=== PATIENT | female | born 1940 | race Caucasian/White ===

== ENCOUNTER 2016-09-06 10:53 | Emergency (ER) | payer OTHER ==
[~2016-09-06] VITALS: Ht 152.4 cm; Wt 60.1 kg
[~2016-09-06 10:53] MED LIST: ASPI-621 PO; BENA20TA61 PO; CLOP75TA22 PO; DIAZ2TAB3 PO; HYDR25TA6 PO; PANT40TA3 PO; PARO20TA55 PO; PRAV20TA2 PO; TRAZ50TA18 PO
[2016-09-06] MEDS ORDERED: AMPICILLIN/SULBACTAM 3 GM in SODIUM CHLORIDE 0.9% 100 ML IVPB ONE (11:30)
[2016-09-06] MEDS ORDERED: SODIUM CHLORIDE 0.9% 1,000ML IVBOLUS ONE (11:30)
[2016-09-06] MEDS ORDERED: SODIUM CHLORIDE FLUSH 10ML SYR IVF ONE (11:30)
[2016-09-06 11:57] VITALS: BP 122/71
[2016-09-06 12:18] LABS: BLOOD UREA NITROGEN 11 mg/dL (7-18)
== END 2016-09-06 13:03 | disposition home or self-care (01) ==
LOC: ED 12:07
DX: L03.114 Cellulitis of left upper limb (principal); E11.9 Type 2 diabetes mellitus without complications; I10 Essential (primary) hypertension; E78.5 Hyperlipidemia, unspecified; Z87.891 Personal history of nicotine dependence; W55.01XA Bitten by cat, initial encounter; Y93.89 Activity, other specified; Y92.89 Other specified places as the place of occurrence of the external cause; Y99.8 Other external cause status
CPT/HCPCS: 36415; 73130; 80048; 82040; 85025; 87040; 96365; 99285; J0295; J7030

== ENCOUNTER 2017-09-27 17:58 | Inpatient (IN) | payer OTHER ==
[~2017-09-27] VITALS: Ht 149.9 cm; Wt 63.5 kg
[~2017-09-27 17:58] MED LIST changes: -CLOP75TA22 PO; +CLOP75TA52 PO; -PARO20TA55 PO; +PARO20TA98 PO; +TRAZ-136 PO; -TRAZ50TA18 PO
[2017-09-27] MEDS ORDERED: ALEN70TA5 PO (18:28)
[2017-09-27] MEDS ORDERED: DIPH,PERTUSS(ACELL),TET VAC/PF 0.5 ML IM-VACC ONE (18:30)
[2017-09-27] MEDS ORDERED: AMPICILLIN/SULBACTAM 3 GM in SODIUM CHLORIDE 0.9% 100 ML IVPB ONE (18:30)
[2017-09-27] MEDS ORDERED: SODIUM CHLORIDE 0.9% 1,000ML IVBOLUS ONE (18:30)
[2017-09-27] MEDS ORDERED: CIPROFLOXACIN/PMX 400MG/200ML 200 ML IVPB ONE (18:30)
[2017-09-27] MEDS ORDERED: CLINDAMYCIN PMX 900MG/50ML 50 ML IV ONE (18:30)
[2017-09-27] MEDS ORDERED: SODIUM CHLORIDE FLUSH 10ML SYR IVF ONE (18:30)
[2017-09-27] MEDS ORDERED: CIPROFLOXACIN/PMX 400MG/200ML 200 ML ONE (18:32)
[2017-09-27] MEDS ORDERED: CLINDAMYCIN PMX 900MG/50ML 50 ML ONE (18:32)
[2017-09-27 19:02] LABS: BASOPHILS # (AUTO) 0.02 x10^3/uL (0-0.1); BASOPHILS % (AUTO) 0 % (0-1); EOSINOPHILS # (AUTO) 0.32 x10^3/uL (0-0.4); EOSINOPHILS % (AUTO) 4 % (1-7); LYMPHOCYTES # (AUTO) 1.25 x10^3/uL (1-3.4); LYMPHOCYTES % (AUTO) 16 % (22-44); MD NO; MEAN CORPUSCULAR HEMOGLOBIN 25.8 pg (27.0-34.8); MEAN CORPUSCULAR HGB CONC 32.3 g/dL (32.4-35.8); MEAN CORPUSCULAR VOLUME 79.9 fL (80-100); MEAN PLATELET VOLUME 9.1 fL (7.4-10.4); MONOCYTES # (AUTO) 0.62 x10^3/uL (0.2-0.8); MONOCYTES % (AUTO) 8 % (2-9); NEUTROPHILS # (AUTO) 5.73 x10^3/uL (1.8-6.8); NEUTROPHILS % (AUTO) 72 % (42-75); PLATELET COUNT 206 x10^3/uL (130-400); RED BLOOD COUNT 4.41 x10^6/uL (3.82-5.3)
[2017-09-27 19:03] LABS: ANION GAP 8 mmol/L (5-15); CALCIUM 8.7 mg/dL (8.5-10.1); CHLORIDE 100 mmol/L (98-107); CREATININE 0.75 mg/dL (0.55-1.02)
[2017-09-27] MEDS ORDERED: METF500T27 PO (19:10)
[2017-09-27] MEDS ORDERED: ACETAMINOPHEN 325 MG TABLET PO PRN (19:30)
[2017-09-27] MEDS ORDERED: BISACODYL 10 MG SUPP PR PRN (19:30)
[2017-09-27] MEDS ORDERED: ENALAPRILAT 1.25 MG/ML, 2ML IVPush PRN (19:30)
[2017-09-27] MEDS ORDERED: DOCUSATE 100 MG CAPSULE PO PRN (19:30)
[2017-09-27] MEDS ORDERED: ONDANSETRON 2MG/ML, 2ML IVPush PRN (19:30)
[2017-09-27] MEDS ORDERED: POLYETHYLENE GLYCOL 17 GM PACKET PO PRN (19:30)
[2017-09-27 19:43] VITALS: BP 138/79
[2017-09-27] MEDS: TRAZODONE 50MG TABLET PO SCH (20:42)
[2017-09-27] MEDS: ENOXAPARIN 40 MG/0.4 ML SQ SCH (20:42)
[2017-09-27] MEDS: metFORMIN 500 MG TABLET PO SCH (20:42)
[2017-09-27] MEDS: SODIUM CHLORIDE FLUSH 10ML SYR IVF SCH (20:43)
[2017-09-27] MEDS: HYDROCHLOROTHIAZIDE 25 MG TABLET PO SCH (20:43)
[2017-09-27] MEDS: PRAVASTATIN 20 MG TABLET PO SCH (20:43)
[2017-09-27] MEDS: BENAZEPRIL 10 MG TABLET PO SCH (22:23)
[2017-09-27] MEDS: AMPICILLIN/SULBACTAM 3 GM in SODIUM CHLORIDE 0.9% 100 ML IV SCH (22:25)
[2017-09-27] MEDS: DOXYCYCLINE 100 MG in DEXTROSE 5% 250 ML IV SCH (23:49)
[2017-09-28] MEDS: AMPICILLIN/SULBACTAM 3 GM in SODIUM CHLORIDE 0.9% 100 ML IV SCH ×4 (04:37→22:49)
[2017-09-28 04:40] VITALS: BP 130/75
[2017-09-28 05:20] LABS: BASOPHILS # (AUTO) 0.02 x10^3/uL (0-0.1); BASOPHILS % (AUTO) 0 % (0-1); EOSINOPHILS # (AUTO) 0.35 x10^3/uL (0-0.4); EOSINOPHILS % (AUTO) 7 % (1-7); LYMPHOCYTES # (AUTO) 1.04 x10^3/uL (1-3.4); LYMPHOCYTES % (AUTO) 20 % (22-44); MD NO; MEAN CORPUSCULAR HGB CONC 32.8 g/dL (32.4-35.8); MEAN CORPUSCULAR VOLUME 79.1 fL (80-100); MEAN PLATELET VOLUME 9.3 fL (7.4-10.4); MONOCYTES # (AUTO) 0.44 x10^3/uL (0.2-0.8); MONOCYTES % (AUTO) 8 % (2-9); NEUTROPHILS # (AUTO) 3.51 x10^3/uL (1.8-6.8); NEUTROPHILS % (AUTO) 66 % (42-75); PLATELET COUNT 166 x10^3/uL (130-400); RED BLOOD COUNT 3.85 x10^6/uL (3.82-5.3); RED CELL DISTRIBUTION WIDTH 16.6 % (9.6-15.2)
[2017-09-28 05:25] LABS: ANION GAP 8 mmol/L (5-15); CALCIUM 7.9 mg/dL (8.5-10.1); CHLORIDE 101 mmol/L (98-107); CREATININE 0.59 mg/dL (0.55-1.02)
[2017-09-28] MEDS: ASPIRIN 81 MG TABLET EC PO SCH (06:13)
[2017-09-28 07:26] VITALS: BP 132/90
[2017-09-28] MEDS: CLOPIDOGREL 75 MG TABLET PO SCH (07:51)
[2017-09-28] MEDS: BENAZEPRIL 10 MG TABLET PO SCH ×2 (07:51→20:50)
[2017-09-28] MEDS: SODIUM CHLORIDE FLUSH 10ML SYR IVF SCH ×2 (07:51→21:03)
[2017-09-28] MEDS: DIAZEPAM 2 MG TABLET PO SCH (07:52)
[2017-09-28] MEDS: HYDROCHLOROTHIAZIDE 25 MG TABLET PO SCH (07:53)
[2017-09-28] MEDS: POTASSIUM CHLORIDE 20 MEQ TAB.ER.PRT PO SCH ×2 (07:56→16:37)
[2017-09-28] MEDS ORDERED: POTASSIUM CHLORIDE 20 MEQ TAB.ER.PRT PO SCH (08:00)
[2017-09-28] MEDS ORDERED: MAGNESIUM SULFATE PMX 2GM/50ML 50 ML IV ONE (09:00)
[2017-09-28] MEDS: DOXYCYCLINE 100 MG in DEXTROSE 5% 250 ML IV SCH (11:54)
[2017-09-28 12:21] VITALS: BP 109/67
[2017-09-28 19:32] VITALS: BP 148/75
[2017-09-28] MEDS: ENOXAPARIN 40 MG/0.4 ML SQ SCH (20:50)
[2017-09-28] MEDS: PRAVASTATIN 20 MG TABLET PO SCH (20:50)
[2017-09-28] MEDS: TRAZODONE 50MG TABLET PO SCH (20:50)
[2017-09-28] MEDS: metFORMIN 500 MG TABLET PO SCH (20:50)
[2017-09-29] MEDS: DOXYCYCLINE 100 MG in DEXTROSE 5% 250 ML IV SCH ×2 (00:17→11:41)
[2017-09-29 01:55] VITALS: BP 133/78
[2017-09-29 04:54] LABS: BASOPHILS # (AUTO) 0.02 x10^3/uL (0-0.1); BASOPHILS % (AUTO) 0 % (0-1); EOSINOPHILS # (AUTO) 0.37 x10^3/uL (0-0.4); EOSINOPHILS % (AUTO) 8 % (1-7); LYMPHOCYTES # (AUTO) 1.29 x10^3/uL (1-3.4); LYMPHOCYTES % (AUTO) 27 % (22-44); MD NO; MEAN CORPUSCULAR HEMOGLOBIN 25.8 pg (27.0-34.8); MEAN CORPUSCULAR HGB CONC 32.6 g/dL (32.4-35.8); MEAN CORPUSCULAR VOLUME 79.3 fL (80-100); MEAN PLATELET VOLUME 8.7 fL (7.4-10.4); MONOCYTES % (AUTO) 9 % (2-9); NEUTROPHILS # (AUTO) 2.62 x10^3/uL (1.8-6.8); NEUTROPHILS % (AUTO) 56 % (42-75); PLATELET COUNT 174 x10^3/uL (130-400); RED BLOOD COUNT 3.99 x10^6/uL (3.82-5.3); RED CELL DISTRIBUTION WIDTH 17.1 % (9.6-15.2)
[2017-09-29] MEDS: AMPICILLIN/SULBACTAM 3 GM in SODIUM CHLORIDE 0.9% 100 ML IV SCH ×2 (04:54→10:15)
[2017-09-29] MEDS: ASPIRIN 81 MG TABLET EC PO SCH (04:59)
[2017-09-29 05:06] LABS: ANION GAP 7 mmol/L (5-15); CALCIUM 8.1 mg/dL (8.5-10.1); CHLORIDE 105 mmol/L (98-107)
[2017-09-29 05:07] LABS: CREATININE 0.53 mg/dL (0.55-1.02)
[2017-09-29 07:49] VITALS: BP 137/76
[2017-09-29] MEDS: POTASSIUM CHLORIDE 20 MEQ TAB.ER.PRT PO SCH (07:57)
[2017-09-29] MEDS: CLOPIDOGREL 75 MG TABLET PO SCH (07:58)
[2017-09-29] MEDS: SODIUM CHLORIDE FLUSH 10ML SYR IVF SCH (07:58)
[2017-09-29] MEDS: BENAZEPRIL 10 MG TABLET PO SCH (07:58)
[2017-09-29] MEDS: DIAZEPAM 2 MG TABLET PO SCH (07:58)
[2017-09-29] MEDS ORDERED: AMOX1TAB64 PO (08:42)
[2017-09-29] MEDS ORDERED: DOXY100T PO (08:42)
[2017-09-29] MEDS ORDERED: ACID1TAB3 PO (08:42)
== END 2017-09-29 13:20 | disposition home or self-care (01) | DRG 603 ==
LOC: ED 19:04 → 3NE 19:05 → DCLOUNGE 09-29 13:12
PROVIDERS: ADMIT Hospitalist; ATTEND Hospitalist
DX: L03.114 Cellulitis of left upper limb (principal); E87.6 Hypokalemia; E11.9 Type 2 diabetes mellitus without complications; D64.9 Anemia, unspecified; M81.0 Age-related osteoporosis without current pathological fracture; M19.90 Unspecified osteoarthritis, unspecified site; E83.42 Hypomagnesemia; E78.5 Hyperlipidemia, unspecified; I11.9 Hypertensive heart disease without heart failure; Y93.89 Activity, other specified; Y92.89 Other specified places as the place of occurrence of the external cause; Z87.891 Personal history of nicotine dependence; W55.01XA Bitten by cat, initial encounter; Z82.49 Family history of ischemic heart disease and other diseases of the circulatory system; Z86.73 Personal history of transient ischemic attack (TIA), and cerebral infarction without residual deficits; Z83.3 Family history of diabetes mellitus; Z79.84 Long term (current) use of oral hypoglycemic drugs; Y99.8 Other external cause status; Z79.899 Other long term (current) drug therapy; Z79.1 Long term (current) use of non-steroidal anti-inflammatories (NSAID); Z79.2 Long term (current) use of antibiotics; Z88.5 Allergy status to narcotic agent
CPT/HCPCS: 36415; 80048; 83735; 85025; 87040; 96365; 99285; J0295; J0744; J1650; J7060; J3475; J7030

== ENCOUNTER 2018-09-27 13:31 | Emergency (ER) | payer MEDICARE, OTHER ==
[~2018-09-27] VITALS: Ht 149.9 cm; Wt 56.0 kg
[2018-09-27 13:34] VITALS: BP 118/58
== END 2018-09-27 14:57 | disposition home or self-care (01) ==
LOC: ED 14:45
DX: S16.1XXA Strain of muscle, fascia and tendon at neck level, initial encounter (principal); I10 Essential (primary) hypertension; E78.5 Hyperlipidemia, unspecified; Z86.73 Personal history of transient ischemic attack (TIA), and cerebral infarction without residual deficits; E11.9 Type 2 diabetes mellitus without complications; M19.90 Unspecified osteoarthritis, unspecified site; Z87.891 Personal history of nicotine dependence; V49.49XA Driver injured in collision with other motor vehicles in traffic accident, initial encounter; Y93.89 Activity, other specified; Y92.410 Unspecified street and highway as the place of occurrence of the external cause; Y99.8 Other external cause status
CPT/HCPCS: 72050; 99283